=== PATIENT | female | born 1970 ===

== ENCOUNTER 2023-08-22 10:30 | Inpatient (IN) | payer OTHER ==
[~2023-08-22] VITALS: Ht 165.1 cm; Wt 73.0 kg
[2023-08-22] MEDS ORDERED: TOPROL XL25 M1 PO (14:27)
[2023-08-22] MEDS ORDERED: CARAFATE1 GM PO (14:28)
[2023-08-22] MEDS ORDERED: PEPCID AC20 MG PO (14:28)
[2023-08-22] MEDS ORDERED: NEXIUM 24HR20 M1 PO (14:28)
[2023-08-22] MEDS ORDERED: LYRICA50 MG PO (14:29)
[2023-08-22] MEDS ORDERED: TRAMADOL HCL50 MG PO (14:29)
[2023-08-22] MEDS ORDERED: DULOXETINE HCL20 MG PO (14:30)
[2023-08-27 17:30] LABS: HEMATOCRIT 38.2 % (36.0-45.00); HEMOGLOBIN 12.5 g/dL (12.0-15.00); MEAN CELL VOLUME 85.9 fL (80.00-100.00); MEAN CORPUSCULAR HEMOGLOBIN 28.1 pg (27.00-32.0); MEAN CORPUSCULAR HGB CONC 32.7 g/dl (32.0-36.0); PLATELET COUNT 224 K/uL (150-450); RED BLOOD COUNT 4.45 M/uL (4.00-6.00); RED CELL DISTRIBUTION WIDTH 12.4 % (11.5-14.5)
[2023-08-28 06:49] LABS: HEMATOCRIT 35.6 % (36.0-45.00); MEAN CELL VOLUME 84.1 fL (80.00-100.00); MEAN CORPUSCULAR HEMOGLOBIN 28.4 pg (27.00-32.0); MEAN CORPUSCULAR HGB CONC 33.7 g/dl (32.0-36.0); PLATELET COUNT 197 K/uL (150-450); RED BLOOD COUNT 4.23 M/uL (4.00-6.00)
[2023-08-28 07:15] LABS: ALBUMIN 2.9 gm/dL (3.4-5.0); CALCIUM 8.8 mg/dL (8.5-10.1); CREATININE SERUM 0.48 mg/dL (0.55-1.02); GFR 136.35; MAGNESIUM 2.1 mg/dL (1.8-2.4); PHOSPHOROUS 4.1 mg/dL (2.5-4.9); POTASSIUM 3.98 mEq/L (3.5-5.1)
[2023-08-29 11:51] LABS: HEMOGLOBIN 11.8 g/dL (12.0-15.00); MEAN CELL VOLUME 84.7 fL (80.00-100.00); MEAN CORPUSCULAR HEMOGLOBIN 27.8 pg (27.00-32.0); MEAN CORPUSCULAR HGB CONC 32.8 g/dl (32.0-36.0); PLATELET COUNT 188 K/uL (150-450); RED BLOOD COUNT 4.25 M/uL (4.00-6.00); RED CELL DISTRIBUTION WIDTH 13.2 % (11.5-14.5)
[2023-08-29 12:38] LABS: CALCIUM 8.7 mg/dL (8.5-10.1); CREATININE SERUM 0.46 mg/dL (0.55-1.02); GFR 143.21; MAGNESIUM 1.9 mg/dL (1.8-2.4); PHOSPHOROUS 2.4 mg/dL (2.5-4.9); POTASSIUM 3.81 mEq/L (3.5-5.1)
== END 2023-08-30 12:17 | disposition home or self-care (01) | DRG 330 ==
LOC: O/R 08-27 05:35 → SURH 08-27 07:00 → SURG 08-27 15:01
PROVIDERS: Internal Medicine Geriatric Medicine; ADMIT Colon & Rectal Surgery; ATTEND Colon & Rectal Surgery
PROC: 0DBP4ZZ Excision of Rectum, Percutaneous Endoscopic Approach (ICD-10-PCS; 2023-08-27)
PROC: 0DTN4ZZ Resection of Sigmoid Colon, Percutaneous Endoscopic Approach (ICD-10-PCS; principal; 2023-08-27 07:00)
DX: K57.32 Diverticulitis of large intestine without perforation or abscess without bleeding (principal); K92.1 Melena; K66.0 Peritoneal adhesions (postprocedural) (postinfection)